=== PATIENT | female | born 1965 | race African-American/Black ===

== ENCOUNTER → 2016-09-13 | Outpatient (CLI) | payer MEDICARE ==
[~2016-09-13] VITALS: Ht 179.1 cm; Wt 117.5 kg
[~2016-09-13] MED LIST: ESTR1 PO; FOLI1 PO; GABA-531 PO; HYDR-3965 PO; LISI-662 PO; METF500T4 PO; MULT1CAP32 PO; TOPI100 PO
[2016-09-13 12:23] VITALS: BP 114/67
== END | disposition home or self-care (01) ==
LOC: SRCNTR 12:14
PROVIDERS: ATTEND Internal Medicine
DX: E11.9 Type 2 diabetes mellitus without complications (principal); E66.9 Obesity, unspecified; E78.5 Hyperlipidemia, unspecified; G47.33 Obstructive sleep apnea (adult) (pediatric); I10 Essential (primary) hypertension; Z98.84 Bariatric surgery status
CPT/HCPCS: G0463

== ENCOUNTER → 2017-02-07 | Outpatient (CLI) | payer MEDICARE ==
[~2017-02-07] VITALS: Ht 179.1 cm; Wt 121.5 kg
[~2017-02-07] MED LIST changes: -ESTR1 PO; -FOLI1 PO; -HYDR-3965 PO; +HYDR-4061 PO; -TOPI100 PO; +TOPI100T37 PO
[2017-02-07 13:30] VITALS: BP 109/73
== END | disposition home or self-care (01) ==
LOC: SRCNTR 13:28
PROVIDERS: ATTEND Internal Medicine
DX: G47.33 Obstructive sleep apnea (adult) (pediatric) (principal); E11.9 Type 2 diabetes mellitus without complications; E66.9 Obesity, unspecified; E78.5 Hyperlipidemia, unspecified; I10 Essential (primary) hypertension; Z98.84 Bariatric surgery status
CPT/HCPCS: G0463